=== PATIENT | female | born 1990 | race African-American/Black ===

== ENCOUNTER 2022-01-19 11:30 | Emergency (ER) | payer SELFPAY ==
[~2022-01-19] VITALS: Ht 162.6 cm; Wt 65.9 kg
[2022-01-19 11:36] VITALS: BP 118/66
--- NOTE | 2022-01-19 11:51 | PHYS DOC ---
Past Medical History Additional Past Medical Histor: HEART MURMUR Past Surgical History: No Surgical History Smoking Status: Never Smoker Alcohol Use: None Drug Use: None General Adult EDM: Chief Complaint: MECHANICAL FALL HPI: HPI: Patient is a 31-year-old female who presents today with head pain. Patient s tates that as she was checking her daughter she was attempting to sit in a chair in the emergency department waiting room and she missed the chair and she hit her head up against the wall. Patient denies loss of consciousness but she is now complaining of some dizziness and lightheadedness. Review of Systems: Review of Systems: Constitutional: Denies fever or chills. [] Eyes: Denies change in visual acuity. [] HENT: Denies nasal congestion or sore throat. [] Respiratory: Denies cough or shortness of breath. [] Cardiovascular: Denies chest pain or edema. [] GI: Denies abdominal pain, nausea, vomiting, bloody stools or diarrhea. [] : Denies dysuria. [] Musculoskeletal: Denies back pain or joint pain. [] Integument: Denies rash. [] Neurologic: headache and neck, focal weakness or sensory changes. [] Endocrine: Denies polyuria or polydipsia. [] Lymphatic: Denies swollen glands. [] Psychiatric: Denies depression or anxiety. [] Heart Score: C/O Chest Pain: No Risk Factors: Risk Factors: DM, Current or recent (<one month) smoker, HTN, HLP, family history of CAD, obesity. Risk Scores: Score 0 - 3: 2.5% MACE over next 6 weeks - Discharge Home Score 4 - 6: 20.3% MACE over next 6 weeks - Admit for Clinical Observation Score 7 - 10: 72.7% MACE over next 6 weeks - Early Invasive Strategies Allergies: Allergies: Allergies Coded Allergies Type Severity Reaction Last Updated Verified No Known Drug Allergies 01/19/22 No Physical Exam: PE: Constitutional: Well developed, well nourished, no acute distress, non-toxic appearance. [] HENT: Inspection and palpation of the head and face shows some tenderness in the occipital area, no crepitus no step-offs no lacerations, abrasions, contusions,'s or ecchymosis noted, tympanic membrane's are within normal limits Eyes: PERRLA, EOMI, conjunctiva normal, no discharge. [] Neck: Normal range of motion, no tenderness, supple, no stridor. [] Cardiovascular:Heart rate regular rhythm, no murmur [] Lungs & Thorax: Bilateral breath sounds clear to auscultation [] Abdomen: Bowel sounds normal, soft, no tenderness, no masses, no pulsatile masses. [] Skin: Warm, dry, no erythema, no rash. [] Back: No tenderness, no CVA tenderness. [] Extremities: No tenderness, no cyanosis, no clubbing, ROM intact, no edema. [] Neurologic: Alert and oriented X 3, normal motor function, normal sensory function, no focal deficits noted. [] Psychologic: Affect normal, judgement normal, mood normal. [] Current Patient Data: Labs: Laboratory Tests Test 01/19/22 11:47 01/19/22 11:53 Urine Collection Type Unknown Urine Color (Auto) Light yellow Urine Turbidity Hazy Urine pH (Auto) 6.5 Urine Specific [place] 1.019 Urine Protein (Auto) Negative mg/dL Urine Glucose (Auto)(UA) Negative mg/dL Urine Ketones (Auto) Negative mg/dL Urine Blood (Auto) Small Urine Nitrite Negative Urine Bilirubin (Auto) Negative Urine Urobilinogen (Auto) Normal mg/dL Urine Leukocyte Esterase (Auto) Large Urine RBC 1-2 /HPF Urine WBC 5-10 /HPF Urine Squamous Epithelial Cells Many /LPF Urine Amorphous Sediment Present /HPF Urine Bacteria Moderate /HPF Bedside Urine HCG, Qualitative Hcg negative Vital Signs: Vital Signs Date Time Temp Pulse Resp B/P (MAP) Pulse Ox O2 Delivery O2 Flow Rate FiO2 01/19/22 11:36 98.2 79 18 118/66 (83) 97 Room Air 98.2 EKG: EKG: [] Radiology/Procedures: Radiology/Procedures: REASON: fell and hit head PROCEDURE: CT HEAD AND CERVICAL SPINE WO EXAMINATION: CT HEAD AND C-SPINE WO CLINICAL HISTORY: Head and neck pain following fall with head trauma. TECHNIQUE: Serial axial images without IV contrast were obtained from the vertex to the foramen magnum. CT of the cervical spine without IV contrast. Spiral, high resolution axial images were obtained from the skull base to the cervicothoracic junction with sagittal and coronal planar reconstructions. CT Dose Reduction Employed: One or more of the following individualized dose reduction techniques were utilized for this examination: 1. Automated exposure control 2. Adjustment of the mA and/or kV according to patient size 3. Use of iterative reconstruction technique. COMPARISON: None FINDINGS: BRAIN: Acute Change: No evidence of an acute contusion or other acute parenchymal process. Hemorrhage: No evidence of acute intracranial hemorrhage. Mass Lesion/Mass Effect: No evidence of intracranial mass or extraaxial fluid collection. No significant mass effect. Parenchyma: Parenchyma within normal limits for age. Ventricles: Ventricles within normal limits for age. Paranasal Sinuses and Skull Base: Complete opacification of the left maxillary sinus with bowing and erosion/destruction of the medial sinus wall. Bilateral punctate retinal calcifications. No evidence of acute calvarial fracture. C-SPINE: Alignment: Straightening to slight reversal of the normal cervical lordosis, possibly positional. Osseous Structures: No evidence of acute fracture or spondylolisthesis. No evidence of destructive osseous lesion. Degenerative Changes: No significant degenerative changes. Cervical Soft Tissues: No prevertebral soft tissue swelling. IMPRESSION: BRAIN: No evidence of acute intracranial abnormality. 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 C-SPINE: No evidence of acute osseous abnormality involving the cervical spine. Electronically signed by: Hipolito Marroquin DO (01/19/2022 12:24 PM) [facility] [] Course & Med Decision Making: Course & Med Decision Making Pertinent Labs and Imaging studies reviewed. (See chart for details) 1240 I reviewed radiological and laboratory results with patient I did inform her CT scan was negative for any acute process, did inform her that her labs did show a urinary tract infection. Patient will be given a prescription for UTI, since she is new to the area I will also give her a list of clinic resources here in the area so that she may follow-up for further evaluation and management. Patient is encouraged to return here to the emergency department for change in mental status, blurred vision double vision, or any nausea or vomiting. Reggie Disclaimer: Reggie Disclaimer: This electronic medical record was generated, in whole or in part, using a voice recognition dictation system. Departure Departure Impression: Primary Impression: Head injury, acute, without loss of consciousness Qualified Codes: S09.90XA - Unspecified injury of head, initial encounter Additional Impression: UTI (urinary tract infection) Qualified Codes: N30.01 - Acute cystitis with hematuria Disposition: 01 HOME / SELF CARE / HOMELESS Condition: STABLE Patient Instructions: Head Injury, Adult, Urinary Tract Infection Additional Instructions: Tylenol and/or ibuprofen as needed for pain Macrobid 100 mg take 1 tablet twice daily for 7 days for urinary tract infection Follow-up with your primary care physician or one of the listed clinics below for further evaluation and management of her UTI Return here to the emergency department for increased headache, any blurred vision double vision, or nausea and vomiting or change in mental status. [facility] [address] [place] [address] [facility] [address] [place] [address] [facility] [address] [facility] [place] [address] [facility] [address] [place] [address] [facility] [address] [place] [address] [facility] [address] [place] [address] [facility] [address] [place] [address] [facility] [address] [place] [address] [facility] [address] [place] [address] [facility] [address] [place] [address] Scripts Nitrofurantoin Monohyd/M-Cryst (MACROBID 100 MG CAPSULE) 100 Mg Capsule 1 CAP PO BID for 7 Days, #14 CAP 0 Refills Prov: [employer] 01/19/22 [employer] January 19, 2022 11:51
[2022-01-19 12:17] LABS: AMORPHOUS SEDIMENT,UR PRESENT /HPF; BACTERIA,URINE MODERATE /HPF (0-FEW)
--- NOTE | 2022-01-19 12:26 | RAD ---
EXAMINATION: CT HEAD AND C-SPINE WO CLINICAL HISTORY: Head and neck pain following fall with head trauma. TECHNIQUE: Serial axial images without IV contrast were obtained from the vertex to the foramen magnum. CT of the cervical spine without IV contrast. Spiral, high resolution axial images were obtained from the skull base to the cervicothoracic junction with sagittal and coronal planar reconstructions. CT Dose Reduction Employed: One or more of the following individualized dose reduction techniques wer e utilized for this examination: 1. Automated exposure control 2. Adjustment of the mA and/or kV ac cording to patient size 3. Use of iterative reconstruction technique. COMPARISON: None FINDINGS: BRAIN: Acute Change: No evidence of an acute contusion or other acute parenchymal process. Hemorrhage: No evidence of acute intracranial hemorrhage. Mass Lesion/Mass Effect: No evidence of intracranial mass or extraaxial fluid collection. No signific ant mass effect. Parenchyma: Parenchyma within normal limits for age. Ventricles: Ventricles within normal limits for age. Paranasal Sinuses and Skull Base: Complete opacification of the left maxillary sinus with bowing and erosion/destruction of the medial sinus wall. Bilateral punctate retinal calcifications. No evidence of acute calvarial fracture. C-SPINE: Alignment: Straightening to slight reversal of the normal cervical lordosis, possibly positional. Osseous Structures: No evidence of acute fracture or spondylolisthesis. No evidence of destructive os seous lesion. Degenerative Changes: No significant degenerative changes. Cervical Soft Tissues: No prevertebral soft tissue swelling. IMPRESSION: BRAIN: No evidence of acute intracranial abnormality. 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 C-SPINE: No evidence of acute osseous abnormality involving the cervical spine. Electronically signed by: Hipolito Marroquin DO (01/19/2022 12:24 PM) [facility]
[2022-01-19] MEDS ORDERED: NITR100C62 PO (12:46)
== END 2022-01-19 14:09 | disposition home or self-care (01) ==
LOC: ER 11:30
DX: S09.90XA Unspecified injury of head, initial encounter (principal); N30.01 Acute cystitis with hematuria; R42 Dizziness and giddiness; W22.01XA Walked into wall, initial encounter; Y93.89 Activity, other specified; Y92.89 Other specified places as the place of occurrence of the external cause; Y99.8 Other external cause status
CPT/HCPCS: 70450; 72125; 81001; 81025; 87086; 99284-25